=== PATIENT | male | born 1995 | race Caucasian/White ===

== ENCOUNTER 2024-05-06 06:49 | Emergency (ER) | payer OTHER, SELFPAY ==
--- NOTE | ~2024-05-06 | CT_ITS ---
CLINICAL HISTORY: upper ABD pain, N V CT abdomen and pelvis with contrast Comparison: None Findings: The lung bases are clear. The liver, gallbladder and adrenal glands are unremarkable. Kidneys, ureters and bladder are within normal limits. The spleen is mildly enlarged, measuring up to 15.5 cm The pancreas is unremarkable. Normal appendix. No bowel obstruction or free air. Scattered diverticulosis without evidence of diverticulitis. Minimal stranding about the seminal vesicles, nonspecific. Several subcentimeter lymph nodes are present within the retroperitoneum No acute osseous finding. Impression: No definite acute process. Normal appendix. Mild splenomegaly with several subcentimeter lymph nodes within the retroperitoneum, nonspecific. Ultrasound follow-up could be considered to evaluate for resolution. This document has been electronically signed by: Narinder Cohen MD on 05/06/2024 15:52:46
--- NOTE | ~2024-05-06 | US_ITS ---
CLINICAL HISTORY: N V and upper ABD pain, RUQ TTP US abdomen limited Comparison: None Findings: The visualized pancreas is normal. The aorta and inferior vena cava are normal caliber. The liver is mildly enlarged with the right lobe measuring 18.6 cm and echotexture. There is no intrahepatic bile duct dilatation. The common duct is 5 mm in diameter. The gallbladder is normal. There is no sonographic Campbell sign. The main portal vein is antegrade. The right kidney is 11.5 cm in length. Nonshadowing rounded uniformly echogenic 11 mm lesion No ascites. IMPRESSION: Mild hepatomegaly No acute process. 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
[2024-05-06 06:54] VITALS: BP 137/88; PULSE 100; RESP 17; TEMP 36.9; O2SAT 98; BMI 43.1
[2024-05-06 07:43] LABS: MANUAL DIFF FLAG NO
[2024-05-06 07:47] LABS: Basophils Percent Auto 0.3 % (0-2); Eosinophils Absolute Auto 0.3 X10*3/uL (0.0-0.4); Eosinophils Percent Auto 1.8 % (0-4); Hemoglobin 16.1 g/dl (14.0-18.0); Imm Gran Abs Auto 0.06 X10*3/uL (0.00-0.03); Imm Gran Pct Auto 0.4 % (0.0-0.4); Lymphocytes Absolute Auto 1.3 X10*3/uL (1.2-4.9); Mean Corpuscular HGB Conc 34.3 g/dl (31.0-36.0); Mean Corpuscular Volume 81.7 fL (80.0-98.0); Mean Platelet Volume 9.6 fL (9.4-12.4); Monocytes Absolute Auto 0.9 X10*3/uL (0.1-1.2); Neutrophils Absolute Auto 11.7 x10*3/uL (2.0-8.3); Neutrophils Percent Auto 82.5 % (45-73); Platelet Count 263 X10*3/uL (160-400); Red Blood Count 5.75 X10*6/uL (4.60-5.80); Red Cell Distribution Width 13.2 % (11.0-16.0); White Blood Count 14.2 X10*3/uL (4.8-10.8)
[2024-05-06 08:12] LABS: Alanine Aminotransferase 65 U/L (0-40); Albumin Level 4.3 g/dL (3.5-5.0); Alkaline Phosphatase 93 U/L (39-117); Anion Gap 15 (12-20); Aspartate Amino Transferase 72 U/L (5-37); Bilirubin Total 0.6 mg/dL (0.0-1.0); Blood Urea Nitrogen 16 mg/dL (9-16); Calcium 9.4 mg/dL (8.4-10.2); Carbon Dioxide 22 mmol/L (22-29); Chloride 107 mmol/L (96-108); Creatinine Clr Calc Pharmacy 132.5; Estimated Glomerular Filt Rate > 60; Glucose Random 106 mg/dL (60-115); Lipase 34 U/L (8-78); Potassium 4.2 mmol/L (3.3-5.1); Sodium 140 mmol/L (135-145); Total Protein 7.9 g/dL (6.5-8.0)
[2024-05-06 08:36] LABS: Influenza A PCR NEGATIVE (Negative); Influenza B PCR NEGATIVE (Negative); Resp Syncy Virus RNA Qual PCR NEGATIVE (Negative); SARS COV2 PCR INHOUSE NEGATIVE (Negative)
[2024-05-06] MEDS: 0.9 % Sodium Chloride 1,000 ML 999 ML IV (08:43)
[2024-05-06] MEDS: Magnesium Hydrox/Alum Hydrox 30 ML ORAL.SUSP PO (08:50)
[2024-05-06] MEDS: Lidocaine HCl Viscous 2 % 15 ML SOLUTION MUCOUS MEM (08:50)
[2024-05-06] MEDS: Famotidine/PF 20 MG/2 ML VIAL IVPUSH (08:50)
[2024-05-06] MEDS: ondansetron HCL 4 MG/2 ML VIAL IVPUSH (08:50)
--- NOTE | 2024-05-06 09:04 | ED.ABDPAIN ---
HPI - Abdominal Pain General Chief Complaint: Abdominal Pain Stated Complaint: Stomach pain, vomiting Time Seen by Provider: 05/06/24 07:54 Source: patient Mode of arrival: ambulatory Limitations: no limitations History of Present Illness ED Provider: Astrid Richard NP HPI narrative: Patient is a 28-year-old male presents emergency department for evaluation. Reports that he awoke at 05:00 with severe abdominal pain that felt like an intense pressure. He states that he paced around for about an hour drank a total of 7 bottles of water thinking this might help his pain. He went to the bathroom passed a normal bowel movement without hematochezia or melena no diarrhea. Pain continued, he then vomited 2 episodes of bilious/brown emesis with some particles of food present. He attempted to take a shower in his pain did not get any better. He then decided to come to the emergency department. He reports on arrival that he was beginning to notice the pain was improving some. But still was not completely resolved. Denies fevers, chills, chest pain, shortness of breath, genitourinary symptoms, testicular pain or swelling. Reports that last night he ate a turkey burger at home that he cooked himself. Related Data Previous Rx's ?Medication ?Instructions ?Recorded famotidine 20 mg tablet 20 mg PO DAILY #20 tabs 05/06/24 Allergies Allergy/AdvReac Type Severity Reaction Status Date / Time Penicillins Allergy Unknown Verified 05/06/24 06:57 Review of Systems Review of Systems Yes all other systems are reviewed and are negative PMFSH Past Medical History Attestation statement: The following information was validated with the patient. Source: old records reviewed Social History Social History Smoked in Last 30 Days: No Use of substances other than those prescribed or required for medical reasons: No Advance Directives: No Advance Directives Information Provided: No Do you have a plan to hurt others: No Plan Physical Exam ED Vital Signs: Vital Signs - 24 hr 05/06/24 06:54 05/06/24 10:23 05/06/24 12:37 Temperature 98.4 F Pulse Rate 100 96 89 Respiratory Rate 17 20 16 Blood Pressure 137/88 132/83 122/69 Pulse Oximetry 98 98 98 Oxygen Delivery Method Room Air Room Air Room Air BMI result Body Mass Index 43.1 Appearance: Alert.?Oriented to person, place and time. No acute distress.?Normal affect.?? Neck: Normal inspection.? Neck supple.?? CVS: Heart sounds normal. Normal heart rate and rhythm.? Pulses normal.?? Respiratory: No respiratory distress.? Lung sounds clear to auscultation bilaterally?? Abdomen: Soft and non-tender. No rebound tenderness at McBurney's point. Negative psoas sign. Negative Rovsing sign. Negative Campbell sign. No CVAT. Normoactive bowel sounds. No pulsatile mass.?? Skin: Skin warm and dry.? Normal skin color.? Extremities: No lower extremity edema.? Neuro: Moves all extremities spontaneously. Sensation intact bilaterally. Ambulates with normal steady gait. Course Reevaluation(s) Reevaluation #1: Abdominal ultrasound is negative for acute about a biliary etiology. Patient reports return of severe pain described as pressure, on evaluation has exquisite pain and tenderness over the right upper quadrant epigastric region, also endorsing chest pain at this time. Time: 10:25 Reevaluation #2: CT abdomen pelvis without acute pathology. Suspect symptoms likely secondary to gastritis advised dietary changes, sent prescription to pharmacy, tolerating oral intake in ED, will discharge home Medical Decision Making Medical Decision Making MDM Narrative: Patient is a 48-year-old male presents emergency department for evaluation of sudden onset abdominal pain with nausea and vomiting which has improved greatly on upon arrival to emergency department, and significantly improved after receiving Maalox with lidocaine viscous in addition to IV famotidine periods, remains with mild tenderness over the right upper quadrant and epigastric region. On review CBC reveals a leukocytosis of 14,002 100 with left shift, no anemia or thrombocytopenia. No electrolyte derangement. No DEBORA. Minimally elevated AST/ALT at 72/65 and a normal lipase, no prior available for comparison. This may be secondary to hepatic steatosis, due to diet very intake and obesity. Reviewed possibility for gastritis/gastroenteritis versus acute biliary etiology, denies any known history of cholelithiasis, cholecystitis, he has no fever jaundice to suggest acute cholangitis. With minimally elevated LFTs will obtain right upper quadrant ultrasound to evaluate further. Viral serologies are noted to be negative. No symptoms to suggest pyelonephritis, nephrolithiasis. No associated diarrhea or constipation, given age diverticulitis unlikely, lower suspicion for colitis. Differential Diagnosis Differential Diagnoses: The differential diagnosis associated with the presentation includes (See narrative above) Admission/Observation Consideration of admission/observation: Escalation of care including admission/observation considered (See narrative above ) Lab Data MDM Lab Attestation statement: I reviewed the patient's lab results. (See narrative above) 05/06/24 07:39 05/06/24 07:39 Labs: Lab Results 05/06/24 Range/Units 07:39 WBC 14.2 H (4.8-10.8) X10*3/uL RBC 5.75 (4.60-5.80) X10*6/uL Hgb 16.1 (14.0-18.0) g/dl Hct 47.0 (42.0-52.0) % MCV 81.7 (80.0-98.0) fL MCH 28.0 (27.0-33.0) pg MCHC 34.3 (31.0-36.0) g/dl RDW 13.2 (11.0-16.0) % Plt Count 263 (160-400) X10*3/uL MPV 9.6 (9.4-12.4) fL Immature Gran % (Auto) 0.4 (0.0-0.4) % Neut % (Auto) 82.5 H (45-73) % Lymph % (Auto) 9.0 L (20-40) % [place] % (Auto) 6.0 (2-11) % Eos % (Auto) 1.8 (0-4) % Baso % (Auto) 0.3 (0-2) % Lymph # (Auto) 1.3 (1.2-4.9) X10*3/uL [place] # (Auto) 0.9 (0.1-1.2) X10*3/uL Eos # (Auto) 0.3 (0.0-0.4) X10*3/uL Baso # (Auto) 0.0 (0.0-0.2) X10*3/uL Abs Immat Gran (auto) 0.06 H (0.00-0.03) X10*3/uL Absolute Neuts (auto) 11.7 H (2.0-8.3) x10*3/uL Absolute Nucleated RBC 0.000 (0.0-0.012) X10*3/uL Nucleated RBC % (auto) 0.0 (0.0-0.2) /100WBC Sodium 140 (135-145) mmol/L Potassium 4.2 (3.3-5.1) mmol/L Chloride 107 (96-108) mmol/L Carbon Dioxide 22 (22-29) mmol/L Anion Gap 15 (12-20) BUN 16 (9-16) mg/dL Creatinine 1.11 (0.5-1.4) mg/dL Estim Creat Clear Calc 132.5 Estimated GFR > 60 Random Glucose 106 (60-115) mg/dL Calcium 9.4 (8.4-10.2) mg/dL Total Bilirubin 0.6 (0.0-1.0) mg/dL AST 72 H (5-37) U/L ALT 65 H (0-40) U/L Alkaline Phosphatase 93 (39-117) U/L Troponin I High Sens < 2.7 (<3.5-35.0) ng/L Total Protein 7.9 (6.5-8.0) g/dL Albumin 4.3 (3.5-5.0) g/dL Lipase 34 (8-78) U/L Influenza Type A (PCR) NEGATIVE (Negative) Influenza Type B (PCR) NEGATIVE (Negative) RSV RNA Qual (PCR) NEGATIVE (Negative) SARS-CoV-2 RNA (RT-PCR) NEGATIVE (Negative) Radiology Impression Discussion of test interpretation with radiology: I have reviewed the radiologist's reading. Radiologist Impression: US abdomen limited Comparison: None Findings: The visualized pancreas is normal. The aorta and inferior vena cava are normal caliber. The liver is mildly enlarged with the right lobe measuring 18.6 cm and echotexture. There is no intrahepatic bile duct dilatation. The common duct is 5 mm in diameter. The gallbladder is normal. There is no sonographic Campbell sign. The main portal vein is antegrade. The right kidney is 11.5 cm in length. Nonshadowing rounded uniformly echogenic 11 mm lesion No ascites. IMPRESSION: Mild hepatomegaly No acute process. 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 Normal appendix. Mild splenomegaly with several subcentimeter lymph nodes within the retroperitoneum, nonspecific. Ultrasound follow-up could be considered to evaluate for resolution. Medications Administered Discontinued Medications Generic Name Dose Route Start Last Admin Trade Name Freq PRN Reason Stop Dose Admin Al Hydroxide/Mg Hydroxide 30 ml 05/06/24 08:33 05/06/24 08:50 Magnesium Hydrox/Alum Hydrox 30 Ml Oral.Susp PO 05/06/24 08:34 30 ml ONCE ONE Administration Famotidine 20 mg 05/06/24 08:33 05/06/24 08:50 Famotidine/Pf 20 Mg/2 Ml Vial IVPUSH 05/06/24 08:34 20 mg ONCE ONE Administration Sodium Chloride 1,000 mls @ 999 mls/hr 05/06/24 08:45 05/06/24 10:18 Ns IV 05/06/24 09:45 Infused .Q1H1M JULIUS Infusion Iohexol 100 ml 05/06/24 11:53 05/06/24 11:53 Iohexol 350 Mg/Ml 100 Ml Infus..Btl IV 05/06/24 11:54 85 ml ONCE ONE Administration Lidocaine HCl 15 ml 05/06/24 08:33 05/06/24 08:50 Lidocaine Hcl Viscous 2 % 15 Ml Solution MUCOUS MEM 05/06/24 08:34 15 ml ONCE ONE Administration Morphine Sulfate 4 mg 05/06/24 10:25 05/06/24 10:36 Morphine Sulfate 4 Mg/Ml Cartridge IVPUSH 05/06/24 10:26 4 mg ONCE ONE Administration Protocol Ondansetron HCl 4 mg 05/06/24 08:34 05/06/24 08:50 Ondansetron Hcl 4 Mg/2 Ml Vial IVPUSH 05/06/24 08:35 4 mg ONCE ONE Administration Discharge Plan Discharge Clinical Impression: Gastritis Patient Disposition: Home, Self-Care Instructions: Gastritis (ED) Additional Instructions: Avoid triggers such as fatty foods, spicy foods, tomatoes, onions, coffee, tea, chocolate, and alcohol. Remaining upright after meals for 1-2 hours. Avoid eating at least 3 hours before bedtime. Try sleeping on an incline if possible. abdominal imaging changes not show any acute abnormality which is reassuring. Take medication as prescribed follow up with the primary care doctor. Return with any new or worsening symptoms or concerns Prescriptions: New famotidine 20 mg tablet 20 mg PO DAILY Qty: 20 0RF Stand Alone Forms: Work/School Release Print Language: Andorran
[2024-05-06 10:23] VITALS: BP 132/83; PULSE 96; RESP 20; O2SAT 98
--- NOTE | 2024-05-06 10:25 | ECG_ITS ---
Test Reason : chest pain Blood Pressure : */* mmHG Vent. Rate : 88 BPM Atrial Rate : 88 BPM P-R Int : 196 ms QRS Dur : 94 ms QT Int : 338 ms P-R-T Axes : 47 59 21 degrees QTcB Int : 408 ms Normal sinus rhythm with sinus arrhythmia Normal ECG No previous ECGs available Referred By: Astrid Richard Electronically Signed By: Sin Grimaldo
[2024-05-06] MEDS: Morphine Sulfate 4 MG/ML CARTRIDGE IVPUSH (10:36)
[2024-05-06 11:07] LABS: Troponin-I High Sensitivity < 2.7 ng/L (<3.5-35.0)
[2024-05-06] MEDS: iohexoL 350 MG/ML 100 ML INFUS..BTL IV (11:53)
[2024-05-06 12:37] VITALS: BP 122/69; PULSE 89; RESP 16; O2SAT 98
[2024-05-06 16:19] VITALS: BP 119/67; PULSE 78; RESP 16; TEMP 36.6; O2SAT 98
[2024-05-06 16:21] VITALS: BP 119/67; PULSE 78; RESP 16; TEMP 36.6; O2SAT 98
== END 2024-05-06 16:29 | disposition home or self-care (01) ==
PROVIDERS: Nurse Practitioner Family; Emergency Provider Emergency Medicine; PCP Physician Assistant
DX: K29.70 Gastritis, unspecified, without bleeding (principal); R10.11 Right upper quadrant pain; R07.9 Chest pain, unspecified; Z03.818 Encounter for observation for suspected exposure to other biological agents ruled out; R11.2 Nausea with vomiting, unspecified
CPT/HCPCS: 0241U; 74177; 76705; 80053; 83690; 84484; 85025; 93005; 96361; 96374; 96375; 99284; 99285; J2270; J2405; Q9967

== ENCOUNTER → 2024-05-06 09:26 | Outpatient (BNV) | payer OTHER, SELFPAY | PROVIDERS: Emergency Provider Emergency Medicine; PCP Physician Assistant; Visit Provider Radiology Vascular & Interventional Radiology | DX: R10.10 Upper abdominal pain, unspecified (principal); R10.11 Right upper quadrant pain; R11.2 Nausea with vomiting, unspecified | CPT/HCPCS: 74177; 76705 ==

== ENCOUNTER → 2024-05-06 10:25 | Outpatient (BNV) | payer OTHER, SELFPAY | PROVIDERS: Emergency Provider Emergency Medicine; PCP Physician Assistant; Visit Provider Internal Medicine Cardiovascular Disease | DX: R07.9 Chest pain, unspecified (principal) | CPT/HCPCS: 93010 ==